=== PATIENT | female | born 1995 | race Caucasian/White ===

== ENCOUNTER 2021-10-31 19:45 | Emergency (ER) | payer OTHER ==
[2021-10-31] MEDS ORDERED: CYCLOBENZAPRINE10 MG PO (22:35)
== END 2021-10-31 22:54 | disposition home or self-care (01) ==
LOC: FER 19:45
DX: S20.219A Contusion of unspecified front wall of thorax, initial encounter (principal); S60.212A Contusion of left wrist, initial encounter; E10.9 Type 1 diabetes mellitus without complications; E03.9 Hypothyroidism, unspecified; Z79.4 Long term (current) use of insulin; Z79.890 Hormone replacement therapy; V49.40XA Driver injured in collision with unspecified motor vehicles in traffic accident, initial encounter; Z28.310 Unvaccinated for COVID-19
CPT/HCPCS: 71046; 73090; 73110